=== PATIENT | male | born 1965 | race Caucasian/White ===

== ENCOUNTER → 2020-01-06 | Outpatient (CLI) | payer OTHER ==
--- NOTE | 2020-01-06 16:48 | US ---
EXAMINATION TYPE: US kidneys/renal and bladder DATE OF EXAM: 01/06/2020 COMPARISON: NONE CLINICAL HISTORY: M54.9 dorsalgia. Intermittent right flank pain EXAM MEASUREMENTS: Right Kidney: 12.2 x 5.1 x 5.4 cm Left Kidney: 11.9 x 6.4 x 5.5 cm Post Void Residual Volume: 111.96 mL Right Kidney: no hydronephrosis or masses seen Left Kidney: no hydronephrosis or masses seen Bladder: wnl Bilateral Jets seen: yes Normal Post Void Residual: no There is no evidence for hydronephrosis at this point in time. No nephrolithiasis is seen. No elizabeth s are identified. The urinary bladder is anechoic. Bilateral ureteral jets are seen. IMPRESSION: No distinct abnormality identified.
== END | disposition home or self-care (01) ==
LOC: RADUSMAIN 15:50
PROVIDERS: ATTEND Family Medicine
DX: M54.9 Dorsalgia, unspecified (principal)
CPT/HCPCS: 76770

== ENCOUNTER 2020-01-20 18:32 | Emergency (ER) | payer OTHER ==
[2020-01-20 19:01] VITALS: TEMP 98.1
[2020-01-20 19:43] VITALS: PULSE 67; RESP 18
[2020-01-20 19:52] LABS: Basophils % (A) 0 %; Eosinophils # (A) 0.1 k/uL (0-0.7); Eosinophils % (A) 2 %; HCT 43.9 % (39.0-53.0); HGB 14.1 gm/dL (13.0-17.5); Lymphocytes # (A) 1.2 k/uL (1.0-4.8); Lymphocytes % (A) 32 %; MCH 28.4 pg (25.0-35.0); MCHC 32.1 g/dL (31.0-37.0); MCV 88.6 fL (80.0-100.0); Monocytes # (A) 0.3 k/uL (0-1.0); Monocytes % (A) 8 %; Neutrophils # (A) 1.9 k/uL (1.3-7.7); Neutrophils % (A) 54 %; Platelet Count 197 k/uL (150-450); RBC 4.96 m/uL (4.30-5.90); WBC 3.6 k/uL (3.8-10.6)
[2020-01-20 19:56] LABS: Appearance,Urine Clear (Clear); Bilirubin,Urine Negative (Negative); Blood,Urine Negative (Negative); Color,Urine Yellow; Glucose,Urine (UA) Negative (Negative); Ketones,Urine Negative (Negative); Leukocyte Esterase,Urine Negative (Negative); Nitrite,Urine Negative (Negative); PH, Urine 6.5 (5.0-8.0); Protein,Urine Negative (Negative); Specific Gravity,Urine 1.019 (1.001-1.035); Urobilinogen,Urine <2.0 mg/dL (<2.0)
[2020-01-20 20:03] LABS: ALT 20 U/L (4-49); AST 35 U/L (17-59); African American GFR (CKD) >90 (>60 ml/min/1.73 sqM); Albumin 4.2 g/dL (3.5-5.0); Alkaline Phosphatase 86 U/L (38-126); Amylase 211 U/L (30-110); Anion Gap 7 mmol/L; Blood Urea Nitrogen 18 mg/dL (9-20); Calcium 9.2 mg/dL (8.4-10.2); Carbon Dioxide 28 mmol/L (22-30); Chloride 105 mmol/L (98-107); Glucose 113 mg/dL (74-99); Non-African American GFR(CKD) >90 (>60 ml/min/1.73 sqM); Potassium 4.1 mmol/L (3.5-5.1); Sodium 140 mmol/L (137-145); Total Bilirubin 0.1 mg/dL (0.2-1.3); Total Protein 7.5 g/dL (6.3-8.2)
--- NOTE | 2020-01-20 20:28 | CT ---
EXAMINATION TYPE: CT abdomen pelvis wo/w con DATE OF EXAM: 01/20/2020 COMPARISON: None HISTORY: Right side abdominal pain x6 months CT DLP: 1619.2 mGycm Automated exposure control for dose reduction was used. CONTRAST: Performed without and with IV Contrast, patient injected with 100 mL of Isovue 300. Lung bases are clear. There is no pleural effusion. Heart size is normal. There is no pericardial eff usion. The noncontrast images show no renal calculus. Liver spleen stomach pancreas gallbladder appear normal. Bile ducts are not dilated. There is no adre nal mass. Kidneys show satisfactory contrast opacification. There is no hydronephrosis. There is no r etroperitoneal adenopathy. Appendix is posterior and appears normal. There is no mesenteric edema. Th ere is no ascites or free air. There is no evidence of a bowel obstruction. There is no inguinal hernia. Bladder distends smoothly. There is no free fluid in the pelvis. There is no sign of a pelvic mass. Delayed images show normal r enal excretion. 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 Lumbar vertebra have normal spacing and alignment. Posterior elements are intact. There is no joslyn junior fracture. Bony pelvis appears intact. Hip joints appear normal. IMPRESSION: Negative CT scan of the abdomen pelvis. No renal stone or obstruction. Normal appendix.
[2020-01-20 20:49] VITALS: BP 147/67
--- NOTE | 2020-01-20 21:05 | ED ---
General Adult HPI - General Chief complaint: Abdominal Pain Stated complaint: rt sided pain Time Seen by Provider: 01/20/20 19:13 Source: patient Mode of arrival: ambulatory Limitations: no limitations - History of Present Illness Initial comments: This 54-year-old white male presents with some pain in his right mid back/flank region. He has had it for 6 months. He relates it as being mild in nature. 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 He denies any actual injury. He has occasional anterior abdominal pain in the right and left side upper abdomen. He denies any nausea, vomiting, diarrhea, constipation, fevers, or chills. He was seen by his primary care physician this past week and had laboratory done and had a slight elevation of his lipase and amylase. The patient apparently was concerned regarding the possibility of pancreatic cancer and therefore he was sent in by his doctor requesting a com puted tomography scan of the abdomen and pelvis with and without contrast for further evaluation of his symptomatology. His PCP relates that he is fairly anxious regarding his conditions. The patient has not tried any medication for his pain as he does not believe in taking medications. He generally has been very healthy and lost a fair amount of weight this past year from eating a vegan diet. - Related Data Home Medications Medication Instructions Recorded Confirmed No Known Home Medications 01/20/20 01/20/20 Allergies Allergy/AdvReac Type Severity Reaction Status Date / Time No Known Allergies Allergy Verified 01/20/20 19:01 Review of Systems ROS Statement: Those systems with pertinent positive or pertinent negative responses have been documented in the HPI. ROS Other: All systems not noted in ROS Statement are negative. Past Medical History Past Medical History: No Reported History History of Any Multi-Drug Resistant Organisms: None Reported Past Surgical History: No Surgical Hx Reported Past Psychological History: No Psychological Hx Reported Smoking Status: Never smoker Past Alcohol Use History: None Reported Past Drug Use History: None Reported General Exam - General Exam Comments Initial Comments: GENERAL: The patient is well nourished and well hydrated. VITAL SIGNS: Heart rate, blood pressure, respiratory rate reviewed as recorded in nurse's notes. EYES: Pupils are round and reactive. Extraocular movements are intact. No conjunctival / lid redness or swelling. ENT: No external evidence of injury, swelling, or ecchymosis. Airway is patent. Throat is clear. NECK: Nontender. No swelling or evidence of injury. No subcutaneous emphysema. Trachea is midline. No thyroid mass. HEART: Regular rate and rhythm. Good peripheral pulses. LUNGS/CHEST: Breath sounds clear and equal bilaterally. No rales, rhonchi, or wheezes. No ecchymosis, subcutaneous emphysema, or tenderness. ABDOMEN: Abdomen soft without tenderness. No palpable masses or organomegaly. No peritoneal signs. No abdominal wall swelling or ecchymosis. EXTREMITIES: No extremity tenderness. Normal muscle tone and function. There is some tenderness into the right upper lumbar/lower thoracic musculature/flank region. NEUROLOGIC: Sensation is grossly intact. Cranial nerve exam reveals face is sy mmetrical, tongue is midline, speech is clear. SKIN: No abrasions or ecchymosis is noted. No induration or masses noted. PSYCHIATRIC: Alert and oriented. Appropriate behavior and judgment. Appears moderately anxious. Limitations: no limitations Course Vital Signs 01/20/20 01/20/20 01/20/20 18:59 19:42 20:49 Temperature 98.1 F Pulse Rate 66 67 67 Respiratory 20 18 18 Rate Blood Pressure 155/93 155/93 147/67 O2 Sat by Pulse 97 99 98 Oximetry Medical Decision Making - Medical Decision Making The patient was seen and examined. All diagnostics were reviewed. Case was discussed with his doctor prior to arrival. The lipase is now normal. The amylase is very minimally elevated. The white blood cell count is slightly decreased. The remainder of labs were essentially within normal. The computed tomography scan of the abdomen and pelvis came back normal. He refuses any Motrin or Tylenol. Overall, it is felt as though his symptoms are likely musculoskeletal in nature. The patient seems to have a hard time accepting this and seems to want a different diagnosis. Once again, he seems somewhat anxious. He states that he has an appointment with a human resources hr generalist tomorrow as he thought that this could be related to his kidneys. It is felt as though he is stable for discharge home and a follow-up with his primary care physician. If his symptoms persist that he may benefit from further imaging of his spine, back specialist follow-up, and possibly physical therapy. - Lab Data Result diagrams: 01/20/20 18:40 01/20/20 18:40 Lab Results 01/20/20 01/20/20 01/20/20 Range/Units 18:40 18:40 18:40 WBC 3.6 L (3.8-10.6) k/uL RBC 4.96 (4.30-5.90) m/uL Hgb 14.1 (13.0-17.5) gm/dL Hct 43.9 (39.0-53.0) % MCV 88.6 (80.0-100.0) fL MCH 28.4 (25.0-35.0) pg MCHC 32.1 (31.0-37.0) g/dL RDW 13.0 (11.5-15.5) % Plt Count 197 (150-450) k/uL Neutrophils % 54 % Lymphocytes % 32 % Monocytes % 8 % Eosinophils % 2 % Basophils % 0 % Neutrophils # 1.9 (1.3-7.7) k/uL Lymphocytes # 1.2 (1.0-4.8) k/uL Monocytes # 0.3 (0-1.0) k/uL Eosinophils # 0.1 (0-0.7) k/uL Basophils # 0.0 (0-0.2) k/uL Sodium 140 (137-145) mmol/L Potassium 4.1 (3.5-5.1) mmol/L Chloride 105 (98-107) mmol/L Carbon Dioxide 28 (22-30) mmol/L Anion Gap 7 mmol/L BUN 18 (9-20) mg/dL Creatinine 0.91 (0.66-1.25) mg/dL Est GFR (CKD-EPI)AfAm >90 (>60 ml/min/1.73 sqM) Est GFR (CKD-EPI)NonAf >90 (>60 ml/min/1.73 sqM) Glucose 113 H (74-99) mg/dL Calcium 9.2 (8.4-10.2) mg/dL Total Bilirubin 0.1 L (0.2-1.3) mg/dL AST 35 (17-59) U/L ALT 20 (4-49) U/L Alkaline Phosphatase 86 (38-126) U/L Total Protein 7.5 (6.3-8.2) g/dL Albumin 4.2 (3.5-5.0) g/dL Amylase 211 H (30-110) U/L Lipase 232 (23-300) U/L Urine Color Yellow Urine Appearance Clear (Clear) Urine pH 6.5 (5.0-8.0) Ur Specific [place] 1.019 (1.001-1.035) Urine Protein Negative (Negative) Urine Glucose (UA) Negative (Negative) Urine Ketones Negative (Negative) Urine Blood Negative (Negative) Urine Nitrite Negative (Negative) Urine Bilirubin Negative (Negative) Urine Urobilinogen <2.0 (<2.0) mg/dL Ur Leukocyte Esterase Negative (Negative) Disposition Clinical Impression: Back pain Disposition: HOME SELF-CARE Condition: Good Instructions (If sedation given, give patient instructions): Back Pain (ED) Additional Instructions: We recommend that you take either Motrin or Tylenol if needed for pain. Is patient prescribed a controlled substance at d/c from ED?: No Referrals: Bladimir Sterling MD [Primary Care Provider] - 1-2 days Time of Disposition: 21:04
== END 2020-01-20 21:22 | disposition home or self-care (01) ==
LOC: EC 18:32
DX: M54.9 Dorsalgia, unspecified (principal)
CPT/HCPCS: 36415; 80053; 82150; 83690; 85025; 81003; 74178; 99284; Q9967